=== PATIENT | male | born 1980 | race African-American/Black ===

== ENCOUNTER 2017-10-17 20:49 | Emergency (ER) | payer SELFPAY ==
[~2017-10-17 20:49] MED LIST: FIORIC PO; PROM25TA5 PO
[2017-10-17 20:55] VITALS: BP 124/68; PULSE 57; RESP 20; TEMP 98; O2SAT 100
[2017-10-17] MEDS ORDERED: SODIUM CHLORIDE 0.9% FLUSH 10 ML FLUSH IVF PRN (21:15)
[2017-10-17] MEDS ORDERED: KETOROLAC TROMETHAMINE 30 MG/ML (IVP) VIAL IV PUSH ONE (21:15)
--- NOTE | 2017-10-17 21:20 | PD ---
HPI Chief Complaint: Chest Pain Time Seen by Provider: 21:09 Travel History International Travel<30 days: No Contact w/Intl Traveler<30days: No Traveled to known affect area: No History of Present Illness HPI 37-year-old male with no significant past medical history, here for evaluation of right-sided chest pain and neck pain. The patient reports that he began to experience pain when he woke up this morning. He states that his job requires significant physical activity and the pain persisted throughout the day today. He took a nap this afternoon, and when he woke up the pain was still there. Currently the pain is 6 out of 10, worse with movement and palpation. He describes a tingling sensation in his bilateral hands. No weakness. He denies trauma. No fevers or chills. No history of cardiac disease. No known family history of cardiac disease. He is a nonsmoker. [facility] Past Medical History Medical History: Denies Significant Hx Diminished Hearing: No Headaches: Yes Tetanus Vaccination: > 5 Years Influenza Vaccination: No Past Surgical History Surgical History: No Previous Surgery Social History Alcohol Use: Yes (OCCASIONALLY) Tobacco Use: No Substance Use: No Allergies-Medications (Allergen,Severity, Reaction): Coded Allergies: No Known Allergies (Verified Adverse Reaction, Unknown, 10/17/17) Reported Meds & Prescriptions Reported Meds & Active Scripts Active Naproxen 500 Mg Tab 500 Mg PO BID 10 Days Review of Systems Except as stated in HPI: all other systems reviewed are Neg Physical Exam Narrative GENERAL: Well-developed, well-nourished, and will come no apparent distress. SKIN: Focused skin assessment warm/dry. HEAD: Atraumatic. Normocephalic. EYES: Pupils equal and round. No scleral icterus. No injection or drainage. ENT: Mucous membranes pink and moist. NECK: Trachea midline. No JVD. No midline cervical spine step-off or tenderness. CARDIOVASCULAR: Regular rate and rhythm. No murmur appreciated. Distal pulses brisk and equal bilaterally. RESPIRATORY: No accessory muscle use. Clear to auscultation. Breath sounds equal bilaterally. GASTROINTESTINAL: Abdomen soft, non-tender, nondistended. MUSCULOSKELETAL: No obvious deformities. No clubbing. No cyanosis. No edema. Normal range of motion in all joints and extremities. Moderate tenderness to right trapezius and right anterior chest without crepitus, without step-off, without paradoxical chest wall movement. NEUROLOGICAL: Awake and alert. No obvious cranial nerve deficits. Motor grossly within normal limits. Normal speech. PSYCHIATRIC: Appropriate mood and affect; insight and judgment normal. Data Data Last Documented VS Vital Signs Date Time Temp Pulse Resp B/P (MAP) Pulse Ox O2 Delivery O2 Flow Rate FiO2 10/17/17 23:13 67 16 123/65 (84) 100 Room Air 10/17/17 20:55 98.0 Orders Orders Electrocardiogram (10/17/17 21:12) Basic Metabolic Panel (Bmp) (10/17/17 21:12) Ckmb (Isoenzyme) Profile (10/17/17 21:12) Complete Blood Count With Diff (10/17/17 21:12) D-Dimer (10/17/17 21:12) Magnesium (Mg) (10/17/17 21:12) Prothrombin Time / Inr (Pt) (10/17/17 21:12) Act Partial Throm Time (Ptt) (10/17/17 21:12) Troponin I (10/17/17 21:12) Chest, Single Ap (10/17/17 21:12) Ecg Monitoring (10/17/17 21:12) Bilateral Bp Monitoring (10/17/17 21:12) Iv Access Insert/Monitor (10/17/17 21:12) Oximetry (10/17/17 21:12) Oxygen Administration (10/17/17 21:12) Sodium Chloride 0.9% Flush (Ns Flush) (10/17/17 21:15) Ct Cerv Spine W/O Contrast (10/17/17 ) Ketorolac Inj (Toradol Inj) (10/17/17 21:15) CKMB (10/17/17 21:43) CKMB% (10/17/17 21:43) Troponin I (10/17/17 23:08) Labs Laboratory Tests Test 10/17/17 21:05 10/17/17 21:43 10/17/17 23:10 White Blood Count 6.1 TH/MM3 Red Blood Count 4.50 MIL/MM3 Hemoglobin 13.4 GM/DL Hematocrit 40.2 % Mean Corpuscular Volume 89.2 FL Mean Corpuscular Hemoglobin 29.7 PG Mean Corpuscular Hemoglobin Concent 33.3 % Red Cell Distribution Width 13.7 % Platelet Count 275 TH/MM3 Mean Platelet Volume 8.4 FL Neutrophils (%) (Auto) 50.2 % Lymphocytes (%) (Auto) 34.5 % Monocytes (%) (Auto) 8.0 % Eosinophils (%) (Auto) 4.4 % Basophils (%) (Auto) 2.9 % Neutrophils # (Auto) 3.0 TH/MM3 Lymphocytes # (Auto) 2.1 TH/MM3 Monocytes # (Auto) 0.5 TH/MM3 Eosinophils # (Auto) 0.3 TH/MM3 Basophils # (Auto) 0.2 TH/MM3 CBC Comment DIFF FINAL Differential Comment Prothrombin Time 9.8 SEC Prothromb Time International Ratio 1.0 RATIO Activated Partial Thromboplast Time 27.7 SEC D-Dimer Quantitative (PE/DVT) 0.30 MG/L FEU Blood Urea Nitrogen 18 MG/DL Creatinine 1.30 MG/DL Random Glucose 96 MG/DL Calcium Level 8.5 MG/DL Magnesium Level 1.8 MG/DL Sodium Level 139 MEQ/L Potassium Level 3.6 MEQ/L Chloride Level 106 MEQ/L Carbon Dioxide Level 25.8 MEQ/L Anion Gap 7 MEQ/L Estimat Glomerular Filtration Rate 75 ML/MIN Total Creatine Kinase 325 U/L Creatine Kinase MB 2.9 NG/ML Creatine Kinase MB % 0.9 % Troponin I LESS THAN 0.02 NG/ML LESS THAN 0.02 NG/ML MDM Medical Decision Making Medical Screen Exam Complete: Yes Emergency Medical Condition: Yes Interpretation(s) EKG: Sinus, rate 54, normal axis, normal intervals, no acute ischemic abnormality. Differential Diagnosis Musculoskeletal pain, ACS, pneumothorax, pericarditis, PE, pneumonia, radiculopathy Narrative Course Vital signs show heart rate 57, blood pressure 124/68, pulse ox 100% on room air , oral temp of 98F. CBC is unremarkable. BMP is unremarkable. Cardiac enzymes are negative. D-dimer is negative at 0.30. CT cervical spine: No acute findings. Chest x-ray: No focal consolidation or effusion. No pneumothorax. No acute findings. Delta troponin 2 hours after the first is also negative. She was given IV Toradol and reports his symptoms of pain have improved. He still feels as though his hands are swollen and tight. There is no edema on exam. He has normal strength in bilateral upper extremities as well as sensation. Patient's chest pain seems very musculoskeletal in nature and is reproducible with palpation and movements. He also has no cardiac risk factors. I do not believe his pain is cardiac in nature. Dissection is also unlikely as he has equal pulses bilaterally, chest x-ray shows a normal mediastinum, and his d-dimer is low at 0.30. I believe he is stable for discharge home with further workup as an outpatient with a primary care physician this week. He was informed on when to return to the emergency department. He verbalizes understanding and agreement with plan. Diagnosis Primary Impression: Musculoskeletal chest pain Additional Impression: Paresthesia of hand, bilateral Referrals: Primary Care Physician 3 days Additional Instructions: Follow-up with a primary care physician this week. Return to the emergency department for worsening symptoms or any other concerns. Scripts Naproxen (Naproxen) 500 Mg Tab 500 MG PO BID for 10 Days, #20 TAB 0 Refills Prov: Jorge Lopez MD 10/17/17 Disposition: DISCHARGE HOME Condition: Stable Jorge Lopez MD Oct 17, 2017 21:20
[2017-10-17 21:32] VITALS: BP_SYST 110; BP_SYST 123; BP_DIAS 63; BP_DIAS 68; PULSE 55; O2SAT 100
[2017-10-17 21:50] LABS: APTT (PATIENT) 27.7 SEC (24.3-30.1); PROTHROMBIN TIME - PATIENT 9.8 SEC (9.8-11.6)
--- NOTE | 2017-10-17 21:58 | RADRPT ---
EXAM DATE/TIME: 10/17/2017 21:15 [facility] COMPARISON: No previous studies available for comparison. INDICATIONS : Cervical radiculopathy. RADIATION DOSE: 26.54 CTDIvol (mGy) MEDICAL HISTORY : None SURGICAL HISTORY : None. ENCOUNTER: Initial ACUITY: 1 day PAIN SCALE: 6/10 LOCATION: Right neck TECHNIQUE: Volumetric scanning of the cervical spine was performed. Multiplanar reconstructions in the sagittal, coronal and oblique axial planes were performed. Using automated exposure control and adjustment o f the mA and/or kV according to patient size, radiation dose was kept as low as reasonably achievable to obtain optimal diagnostic quality images. DICOM format image data is available electronically f or review and comparison. FINDINGS: VERTEBRAE: Normal vertebral body height. ALIGNMENT: No evidence of subluxation. C2-C3: The bony spinal canal is normal in size. No evidence of disc bulge or herniation. The neural forami na are bilaterally patent. C3-C4: The bony spinal canal is normal in size. No evidence of disc bulge or herniation. The neural forami na are bilaterally patent. C4-C5: The bony spinal canal is normal in size. No evidence of disc bulge or herniation. The neural forami na are bilaterally patent. C5-C6: The bony spinal canal is normal in size. No evidence of disc bulge or herniation. The neural forami na are bilaterally patent. C6-C7: The bony spinal canal is normal in size. No evidence of disc bulge or herniation. The neural forami na are bilaterally patent. C7-T1: The bony spinal canal is normal in size. No evidence of disc bulge or herniation. The neural forami na are bilaterally patent. CONCLUSION: 1. No acute findings on cervical spine CT. Julian Rene MD on October 17, 2017 at 21:55 Board Certified Radiologist. This report was verified electronically.
--- NOTE | 2017-10-17 22:05 | RADRPT ---
EXAM DATE/TIME: 10/17/2017 21:24 [facility] COMPARISON: No previous studies available for comparison. INDICATIONS : Chest pain. MEDICAL HISTORY : SURGICAL HISTORY : None. ENCOUNTER: Initial ACUITY: 1 day PAIN SCORE: 5/10 LOCATION: Right chest FINDINGS: A single view of the chest demonstrates the lungs to be symmetrically aerated without evidence of mas s, infiltrate or effusion. The cardiomediastinal contours are unremarkable. Osseous structures are intact. CONCLUSION: 1. No focal consolidation or effusion. No pneumothorax. No acute findings. Julian Rene MD on October 17, 2017 at 22:03 Board Certified Radiologist. This report was verified electronically.
[2017-10-17 22:22] LABS: CHLORIDE 106 MEQ/L (98-107); POTASSIUM 3.6 MEQ/L (3.5-5.1); SODIUM (NA) 139 MEQ/L (136-145)
[2017-10-17 22:25] LABS: ANION GAP 7 MEQ/L (5-15); BICARBONATE 25.8 MEQ/L (21.0-32.0); BLOOD UREA NITROGEN 18 MG/DL (7-18); MAGNESIUM 1.8 MG/DL (1.5-2.5)
[2017-10-17 22:29] LABS: GLOMERULAR FILTRATION RATE 75 ML/MIN (>89)
[2017-10-17 22:32] LABS: CREATINE KINASE 325 U/L (39-308)
[2017-10-17 22:44] LABS: CKMB 2.9 NG/ML (0.5-3.6)
[2017-10-17 22:51] LABS: BASOPHIL # 0.2 TH/MM3 (0-0.2); BASOPHIL % 2.9 % (0.0-2.0); EOSINOPHIL # 0.3 TH/MM3 (0-0.4); EOSINOPHIL % 4.4 % (0.0-4.0); HEMATOCRIT 40.2 % (39.0-51.0); HEMO FLAGS DIFF FINAL; LYMPH % 34.5 % (9.0-44.0); LYMPHOCYTE # 2.1 TH/MM3 (1.0-4.8); MEAN CELL VOLUME 89.2 FL (80.0-100.0); MEAN CORPUSCULAR HEMOGLOBIN 29.7 PG (27.0-34.0); MEAN CORPUSCULAR HGB CONC 33.3 % (32.0-36.0); NEUT % 50.2 % (16.0-70.0); PLATELET COUNT 275 TH/MM3 (150-450); RED CELL DISTRIBUTION WIDTH 13.7 % (11.6-17.2); WHITE BLOOD COUNT 6.1 TH/MM3 (4.0-11.0)
[2017-10-17 23:13] VITALS: BP 123/65; PULSE 67; RESP 16; O2SAT 100
[2017-10-17] MEDS ORDERED: NAPR500T2 PO (23:13)
--- NOTE | 2017-10-18 15:30 | EKG ---
Date Performed: 10/17/2017 Time Performed: 21:03:31 PTAGE: 37 years EKG: SINUS BRADYCARDIA WITH SINUS ARRHYTHMIA BORDERLINE ECG NO PREVIOUS TRACING DOCTOR: Adrien Amaya Interpretating Date/Time 10/18/2017 15:30:16
== END 2017-10-17 23:52 | disposition home or self-care (01) ==
LOC: PHED 20:49
DX: R07.89 Other chest pain (principal); R20.2 Paresthesia of skin; R00.1 Bradycardia, unspecified
CPT/HCPCS: 71010; 72125; 80048; 82550; 82552; 83735; 84484; 85025; 85379; 85610; 85730; 93005; 96374; 99285; J1885

== ENCOUNTER 2017-11-25 15:30 | Emergency (ER) | payer SELFPAY ==
[~2017-11-25] VITALS: Ht 172.7 cm; Wt 97.0 kg
[~2017-11-25 15:30] MED LIST changes: -FIORIC PO; +NAPR500T2 PO; -PROM25TA5 PO
[2017-11-25 15:34] VITALS: BP 143/75; PULSE 72; RESP 16; TEMP 98.1; O2SAT 100
[2017-11-25] MEDS ORDERED: TRAM50TA PO (16:29)
--- NOTE | 2017-11-25 16:33 | PD ---
HPI Chief Complaint: Headache Time Seen by Provider: 16:21 Travel History International Travel<30 days: No Contact w/Intl Traveler<30days: No Traveled to known affect area: No History of Present Illness HPI This patient complains of cough and congestion and body aches and headache. Duration is 4 days. No thunderclap onset to the headache. No neurologic complaint other than headache. Symptoms severity is mild to moderate. No alleviating factors PFSH Past Medical History Medical History: Denies Significant Hx Diminished Hearing: No Headaches: Yes Tetanus Vaccination: < 5 Years Influenza Vaccination: No Past Surgical History Surgical History: No Previous Surgery Social History Alcohol Use: Yes (occas. mix drinks) Tobacco Use: No Substance Use: No Allergies-Medications (Allergen,Severity, Reaction): Coded Allergies: No Known Allergies (Verified Adverse Reaction, Unknown, 11/25/17) Reported Meds & Prescriptions Reported Meds & Active Scripts Active Tramadol (Tramadol HCl) 50 Mg Tab 50 Mg PO Q6H PRN Review of Systems General / Constitutional: No: Fever HENT: Positive: Headaches, Rhinorrhea Respiratory: Positive: Cough Physical Exam Narrative NEUROLOGICAL: Awake and alert. Pupils are equal round and reactive. Motor and sensory grossly within normal limits. Five out of 5 muscle strength in all muscle groups. Normal speech. Psych: Normal mood and affect. Normal insight and judgment. NECK: Symmetrical appearance, midline trachea. No mass or crepitus. Thyroid without enlargement, tenderness, or mass. Oral cavity is clear Nares shows rhinorrhea Data Data Last Documented VS Vital Signs Date Time Temp Pulse Resp B/P (MAP) Pulse Ox O2 Delivery O2 Flow Rate FiO2 11/25/17 15:50 16 100 Room Air 11/25/17 15:34 98.1 72 143/75 (97) [facility] Medical Decision Making Medical Screen Exam Complete: Yes Emergency Medical Condition: Yes Medical Record Reviewed: Yes Differential Diagnosis Flu syndrome, migraine, URI Narrative Course I have reviewed the patient's electronic medical record. Patient was here for migraine in 2014 He is neurologically intact. Presentation is consistent with acute viral syndrome Tramadol prescribed for symptom relief Looks clinically well Diagnosis Primary Impression: Acute viral syndrome Additional Impression: Headache Qualified Codes: R51 - Headache Additional Instructions: The patient was advised to follow up with their physician and return if they worsen. The patient was warned about potential sedation for the medications they will receive on prescription. Med/Other Pt SpecificInfo: Prescription(s) given Scripts Tramadol (Tramadol) 50 Mg Tab 50 MG PO Q6H Y for PAIN, #12 TAB 0 Refills Prov: Radu Valdovinos MD 11/25/17 Disposition: 01 DISCHARGE HOME Condition: Stable Radu Valdovinos MD Nov 25, 2017 16:33
== END 2017-11-25 17:05 | disposition home or self-care (01) ==
LOC: PHED 15:30
DX: B34.9 Viral infection, unspecified (principal); R51 Headache
CPT/HCPCS: 99283